=== PATIENT | female | born 1935 | race Hispanic/Latino ===

== ENCOUNTER 2019-07-31 | Inpatient (IN) | payer MEDICARE | END 2019-08-16 14:45 | disposition home or self-care (01) | DRG 689 | PROVIDERS: ADMIT Hospitalist ==

== ENCOUNTER 2021-11-01 13:57 | Emergency (ER) | payer MEDICARE ==
[~2021-11-01 13:57] MED LIST: AMLO5TAB4 PO; ARIP5TAB8 PO; DOCU-116 PO; FAMO20TA8 PO; MEMA5TAB PO; PARO-66 PO
[2021-11-01 14:57] LABS: BASOPHILS % (AUTO) 0.7 % (0.0-5.0); EOSINOPHILS % (AUTO) 1.9 % (0.0-8.0); HEMATOCRIT 38.9 % (36-48); LYMPHOCYTES % (AUTO) 14.7 % (21.0-51.0); MEAN CORPUSCULAR HGB CONC 33.4 g/dL (32.0-36.0); MEAN CORPUSCULAR VOLUME 92.8 fL (79-99); MONOCYTES % (AUTO) 6.8 % (3.0-13.0); NEUTROPHILS % (AUTO) 75.7 % (40.0-77.0); PLATELET COUNT (AUTO) 230 K/uL (130-400); RED BLOOD CELL COUNT(AUTO) 4.19 MIL/uL (4.00-5.50); RED CELL DISTRIBUTION WIDTH 13.3 % (11.0-15.5); WHITE BLOOD COUNT (AUTO) 5.9 K/uL (4.8-10.8)
[2021-11-01 15:11] LABS: CREATININE 0.8 mg/dL (0.5-1.5); POTASSIUM 3.8 mmol/L (3.5-5.1)
[2021-11-01 15:15] LABS: ALBUMIN 3.5 g/dL (3.5-5.0); TOTAL PROTEIN, SERUM 7.2 g/dL (6.0-8.3)
[2021-11-01 18:41] VITALS: BP 145/74
== END 2021-11-01 19:29 | disposition home or self-care (01) ==
LOC: EDH 13:57
DX: R55 Syncope and collapse (principal); G30.9 Alzheimer's disease, unspecified; F02.80 Dementia in other diseases classified elsewhere, unspecified severity, without behavioral disturbance, psychotic disturbance, mood disturbance, and anxiety; R73.9 Hyperglycemia, unspecified; Z79.899 Other long term (current) drug therapy
CPT/HCPCS: 36415; 80053; 84484; 85025; 93005

== ENCOUNTER 2022-01-28 22:03 | Emergency (ER) | payer MEDICARE ==
[~2022-01-28] VITALS: Ht 160 cm; Wt 61.2 kg
[~2022-01-28 22:03] MED LIST changes: +AEC81 PO; -ARIP5TAB8 PO; -DOCU-116 PO; -FAMO20TA8 PO; +LEVO750T68 PO; -MEMA5TAB PO; -PARO-66 PO; +SIMV-43 PO
[2022-01-29 05:01] VITALS: BP 159/72
== END 2022-01-29 05:02 | disposition home or self-care (01) ==
LOC: EDH 22:03
DX: Z43.1 Encounter for attention to gastrostomy (principal); E78.00 Pure hypercholesterolemia, unspecified; I10 Essential (primary) hypertension; I63.9 Cerebral infarction, unspecified; G30.9 Alzheimer's disease, unspecified; F02.80 Dementia in other diseases classified elsewhere, unspecified severity, without behavioral disturbance, psychotic disturbance, mood disturbance, and anxiety; Z79.899 Other long term (current) drug therapy; Z79.82 Long term (current) use of aspirin
CPT/HCPCS: 74018

== ENCOUNTER 2022-02-03 22:30 | Emergency (ER) | payer MEDICARE ==
[~2022-02-03] VITALS: Ht 152.4 cm; Wt 49.9 kg
[2022-02-03] MEDS ORDERED: DIATR MEGLU/DIATRIZOATE SODIUM 30 ML BOTTLE ONE (23:01)
[2022-02-04 07:31] VITALS: BP 157/74
== END 2022-02-04 09:57 | disposition home or self-care (01) ==
LOC: EDH 22:30
DX: K94.23 Gastrostomy malfunction (principal); E78.00 Pure hypercholesterolemia, unspecified; F03.90 Unspecified dementia, unspecified severity, without behavioral disturbance, psychotic disturbance, mood disturbance, and anxiety; I10 Essential (primary) hypertension; Z79.82 Long term (current) use of aspirin; Z79.899 Other long term (current) drug therapy; Y73.8 Miscellaneous gastroenterology and urology devices associated with adverse incidents, not elsewhere classified; Y92.89 Other specified places as the place of occurrence of the external cause
CPT/HCPCS: 99283; 74018; Q9963

== ENCOUNTER 2022-02-12 01:31 | Emergency (ER) | payer MEDICARE ==
[~2022-02-12] VITALS: Ht 152.4 cm; Wt 43.1 kg
[2022-02-12 02:35] LABS: BASOPHILS % (AUTO) 0.5 % (0.0-5.0); EOSINOPHILS % (AUTO) 1.8 % (0.0-8.0); HEMATOCRIT 38.2 % (36-48); LYMPHOCYTES % (AUTO) 23.2 % (21.0-51.0); MEAN CORPUSCULAR HEMOGLOBIN 30.5 pg (27.0-33.0); MEAN CORPUSCULAR HGB CONC 31.2 g/dL (32.0-36.0); MEAN CORPUSCULAR VOLUME 97.9 fL (79-99); MONOCYTES % (AUTO) 8.9 % (3.0-13.0); NEUTROPHILS % (AUTO) 65.2 % (40.0-77.0); PLATELET COUNT (AUTO) 331 K/uL (130-400); RED CELL DISTRIBUTION WIDTH 12.7 % (11.0-15.5); WHITE BLOOD COUNT (AUTO) 8.5 K/uL (4.8-10.8)
[2022-02-12 02:41] LABS: CREATININE 0.5 mg/dL (0.5-1.5); POTASSIUM 3.8 mmol/L (3.5-5.1)
[2022-02-12 02:48] LABS: ALBUMIN 2.4 g/dL (3.5-5.0); TOTAL PROTEIN, SERUM 6.9 g/dL (6.0-8.3)
[2022-02-12] MEDS ORDERED: 0.9%NACL 1000ML 1,000 ML IV ONE (03:30)
[2022-02-12 06:24] LABS: APPEARANCE,URINE TURBID (CLEAR); BILIRUBIN,URINE MODERATE mg/dL (NEGATIVE); COLOR,URINE YELLOW (YELLOW); GLUCOSE, URINE (UA) NEGATIVE (NEGATIVE); KETONES,URINE NEGATIVE (NEGATIVE); LEUKOCYTE ESTERASE ,URINE MODERATE Leu/uL (NEGATIVE); NITRATE,URINE NEGATIVE (NEGATIVE); OCCULT BLOOD,URINE LARGE (NEGATIVE); PROTEIN,URINE >=300 mg/dL (NEGATIVE)
[2022-02-12 06:31] LABS: RBC,URINE 26-50 /HPF (0-1)
[2022-02-12 06:32] LABS: BACTERIA,URINE Rare /HPF (None Seen); MUCUS,URINE Few LPF (None Seen); SQUAMOUS EPITHELIAL CELL,UR Few /HPF (0-2); TRIPLE PHOSPHATE CRYSTAL,UR Few /LPF (None Seen)
[2022-02-12] MEDS ORDERED: CEPH500B PO (06:47)
[2022-02-12] MEDS ORDERED: CEFTRIAXONE 1G VIAL IVP ONE (07:00)
[2022-02-12 10:28] VITALS: BP 151/73
== END 2022-02-12 10:50 | disposition home or self-care (01) ==
LOC: EDH 01:31
DX: N39.0 Urinary tract infection, site not specified (principal); E86.9 Volume depletion, unspecified; E78.00 Pure hypercholesterolemia, unspecified; I10 Essential (primary) hypertension; G30.9 Alzheimer's disease, unspecified; F02.80 Dementia in other diseases classified elsewhere, unspecified severity, without behavioral disturbance, psychotic disturbance, mood disturbance, and anxiety; Z79.899 Other long term (current) drug therapy; Z98.890 Other specified postprocedural states; Z79.82 Long term (current) use of aspirin
CPT/HCPCS: 99285; 84484; 80053; 85025; 87088; 81001; 36415; 71045; 70450; 96374; 96361; 93005; J0696

== ENCOUNTER → 2022-02-15 | Outpatient (CLI) | payer MEDICARE ==
[~2022-02-15] MED LIST changes: +CEPH500B PO; +DIATR MEGLU/DIATRIZOATE SODIUM 30 ML BOTTLE ONE; +LACTATED RINGERS 1000ML 1,000 ML IV ONE
== END | disposition home or self-care (01) ==
LOC: RAH 15:42
PROVIDERS: ATTEND Internal Medicine Gastroenterology
DX: Z43.1 Encounter for attention to gastrostomy (principal)
CPT/HCPCS: 74018; Q9963; J7120